=== PATIENT | female | born 1950 | race Caucasian/White ===

== ENCOUNTER → 2024-03-13 | Outpatient (REF) | payer MEDICARE ==
[~2024-03-13] MED LIST: FUROSEMIDE INJ 10 MG/ML 4 ML VIAL ONE
== END ==
LOC: NM 12:15
PROVIDERS: ATTEND Urology
DX: N13.30 Unspecified hydronephrosis (principal); N20.0 Calculus of kidney
CPT/HCPCS: 74176; 78708; A9562; J1940

== ENCOUNTER 2024-04-03 17:31 | Emergency (ER) | payer MEDICARE ==
[~2024-04-03] VITALS: Ht 157.5 cm; Wt 81.6 kg
[2024-04-03 17:50] VITALS: PULSE 63; RESP 17; TEMP 98.2; O2SAT 100
== END 2024-04-03 18:09 | disposition home or self-care (01) ==
LOC: ER 17:59
DX: Z43.6 Encounter for attention to other artificial openings of urinary tract (principal); I10 Essential (primary) hypertension; E78.5 Hyperlipidemia, unspecified; Z85.41 Personal history of malignant neoplasm of cervix uteri
CPT/HCPCS: 99282

== ENCOUNTER 2024-04-29 09:49 | Inpatient (IN) | payer MEDICARE ==
[~2024-04-29] VITALS: Ht 157.5 cm; Wt 80.7 kg
[~2024-04-29 09:49] MED LIST changes: +DIALYVITE TABL1 EACH PO; +ELIQUIS2.5 MG PO; -FUROSEMIDE INJ 10 MG/ML 4 ML VIAL ONE; +FUROSEMIDE40 MG PO; +LEVOTHYROXINE50 MCG PO; +MAGNESIUM OXID400 MG PO; +METOPROLOL TART25 MG PO; +PANTOPRAZOLE SO40 MG PO; +POTASSIUM20 MEQ/100 PO; +ZESTRIL2.5 MG PO
[2024-04-29 10:29] LABS: BASOPHILS % 0.5 % (0.0-1.0); EOSINOPHILS # (AUTO) 0.2 (0.0-0.4); EOSINOPHILS % 2.7 % (0.0-6.0); HEMOGLOBIN 10.4 g/dL (12.0-16.0); LYMPHOCYTES # (AUTO) 1.4 (1.0-3.2); LYMPHOCYTES % 16.4 % (18.0-39.1); MEAN CORPUSCULAR HGB CONC 32.5 g/dL (31-35); MEAN CORPUSCULAR VOLUME 95.2 fL (81-99); MONOCYTES # (AUTO) 0.6 (0.2-0.8); MONOCYTES % 7.2 % (4.4-11.3); NEUTROPHILS % 72.8 % (38.7-80.0); PLATELET COUNT 297 x10e3/uL (140-360); RED BLOOD COUNT 3.36 x10e6/uL (3.6-5.1); RED CELL DISTRIBUTION WIDTH 14.5 % (11.7-14.4); WHITE BLOOD COUNT 8.25 x10e3/uL (4.8-10.8)
[2024-04-29 10:44] LABS: PROTHROMBIN TIME 13.7 seconds (11.9-14.5)
[2024-04-29 10:46] LABS: PARTIAL THROMBOPLASTIN TIME 38.7 seconds (23.8-35.5)
[2024-04-29 10:49] LABS: ANION GAP 15.8 mmol/L (8-16); CALCIUM 10.1 mg/dL (8.4-10.2); CREATININE, SERUM 1.38 mg/dL (0.57-1.11); POTASSIUM 3.8 mmol/L (3.5-5.1)
[2024-04-29] MEDS ORDERED: HEPARIN SOD/SOD CHLORIDE 1,000 ML ONE (11:30)
[2024-04-29] MEDS ORDERED: FENTANYL CITRATE/PF 100MCG/2 ML INJ ONE ×2 (12:45→12:47)
[2024-04-29] MEDS ORDERED: MIDAZOLAM HCL 2 MG/2 ML VIAL ONE (12:47)
[2024-04-29] MEDS ORDERED: GLYCOPYRROLATE INJ 0.2 MG/ML VIAL ONE (12:53)
[2024-04-29] MEDS ORDERED: ONDANSETRON HCL INJ 2MG/ML 2ML 2 MG/ML VIAL ONE (12:53)
[2024-04-29] MEDS ORDERED: LIDOCAINE HCL 2% LOCAL INJ 5 ML SDV VIAL INJ ONE (12:53)
[2024-04-29] MEDS ORDERED: DEXAMETHASONE SOD PHOS INJ 4 MG/ML SDV ONE (12:53)
[2024-04-29] MEDS ORDERED: METOCLOPRAMIDE HCL 10 MG/2ML VIAL ONE (12:53)
[2024-04-29] MEDS ORDERED: SEVOFLURANE INHAL SOLN 250 ML PEN BTL ONE (12:53)
[2024-04-29] MEDS ORDERED: PROPOFOL IV EMULSION 10 MG/ML 20 ML VIAL ONE (12:53)
[2024-04-29] MEDS ORDERED: ESMOLOL HCL 100MG/10ML 10 MG/ML VIAL ONE (12:53)
[2024-04-29] MEDS ORDERED: ROCURONIUM BROMIDE 10 MG/ML 5ML VIAL IV ONE (12:53)
[2024-04-29] MEDS ORDERED: HYDROMORPHONE 1MG/1ML INJ ONE (13:23)
[2024-04-29] MEDS ORDERED: NALOXONE HCL INJ 0.4 MG/ML AMP IV PRN (16:30)
[2024-04-29] MEDS: SODIUM CHLORIDE 0.9% 250ML IRRIG IR SCH (16:30)
[2024-04-29 16:47] LABS: BASOPHILS # (AUTO) 0.1 (0.0-0.1); BASOPHILS % 0.5 % (0.0-1.0); EOSINOPHILS # (AUTO) 0.1 (0.0-0.4); EOSINOPHILS % 1.1 % (0.0-6.0); HEMATOCRIT 26.8 % (34.2-44.1); HEMOGLOBIN 8.8 g/dL (12.0-16.0); LYMPHOCYTES % 10.2 % (18.0-39.1); MEAN CORPUSCULAR HEMOGLOBIN 31.2 pg (28-32); MEAN CORPUSCULAR HGB CONC 32.8 g/dL (31-35); MONOCYTES # (AUTO) 0.4 (0.2-0.8); MONOCYTES % 3.6 % (4.4-11.3); NEUTROPHILS # (AUTO) 8.5 (2.1-6.9); PLATELET COUNT 242 x10e3/uL (140-360); RED BLOOD COUNT 2.82 x10e6/uL (3.6-5.1); RED CELL DISTRIBUTION WIDTH 14.3 % (11.7-14.4); WHITE BLOOD COUNT 10.06 x10e3/uL (4.8-10.8)
[2024-04-29] MEDS: HYDROMORPHONE 0.2MG/ML-SOD CHL 30ML PCA SYRINGE IV PRN (17:00)
[2024-04-29 17:08] LABS: ANION GAP 14.8 mmol/L (8-16); CALCIUM 8.4 mg/dL (8.4-10.2); CREATININE, SERUM 1.1 mg/dL (0.57-1.11); POTASSIUM 3.8 mmol/L (3.5-5.1)
[2024-04-29 18:00] VITALS: BP 106/57; PULSE 67; RESP 18; TEMP 96.9
[2024-04-29] MEDS ORDERED: LEVOTHYROXINE25 MCG PO (18:08)
[2024-04-29 19:22] VITALS: BP 106/57; PULSE 67; RESP 16; TEMP 96.9; O2SAT 97
[2024-04-29] MEDS ORDERED: ACETAMINOPHEN 1000 MG/100 ML IV PRN (19:30)
[2024-04-29] MEDS ORDERED: HYDRALAZINE HCL 20 MG/ML VIAL IV PRN (19:30)
[2024-04-29 19:50] VITALS: PULSE 84; RESP 18; O2SAT 99
[2024-04-29] MEDS: SODIUM CHLORIDE 0.9% 1000ML 1,000 ML IV SCH (19:52)
[2024-04-29 20:00] VITALS: BP 110/60; PULSE 72; RESP 18; TEMP 95.6; O2SAT 99
[2024-04-29 23:49] VITALS: BP 108/56; PULSE 75; RESP 18; TEMP 97.4; O2SAT 99
[2024-04-30] VITALS (8 sets, daily range): BP systolic 90–110; BP diastolic 40–52; PULSE 74–97; RESP 17–21; TEMP 97.9–99.3; O2SAT 98–100
[2024-04-30 05:09] LABS: BASOPHILS % 0.1 % (0.0-1.0); HEMATOCRIT 26.5 % (34.2-44.1); HEMOGLOBIN 8.5 g/dL (12.0-16.0); LYMPHOCYTES # (AUTO) 0.9 (1.0-3.2); LYMPHOCYTES % 4.4 % (18.0-39.1); MEAN CORPUSCULAR HEMOGLOBIN 31.6 pg (28-32); MEAN CORPUSCULAR HGB CONC 32.1 g/dL (31-35); MEAN CORPUSCULAR VOLUME 98.5 fL (81-99); MONOCYTES # (AUTO) 1.1 (0.2-0.8); MONOCYTES % 5.7 % (4.4-11.3); NEUTROPHILS # (AUTO) 17.6 (2.1-6.9); NEUTROPHILS % 89.3 % (38.7-80.0); PLATELET COUNT 232 x10e3/uL (140-360); RED BLOOD COUNT 2.69 x10e6/uL (3.6-5.1); RED CELL DISTRIBUTION WIDTH 14.6 % (11.7-14.4); WHITE BLOOD COUNT 19.71 x10e3/uL (4.8-10.8)
[2024-04-30 05:37] LABS: ANION GAP 14.5 mmol/L (8-16); CALCIUM 8.7 mg/dL (8.4-10.2); CREATININE, SERUM 1.19 mg/dL (0.57-1.11); POTASSIUM 4.5 mmol/L (3.5-5.1)
[2024-05-01] VITALS (8 sets, daily range): BP systolic 100–127; BP diastolic 58–71; PULSE 66–130; RESP 17–22; TEMP 98.1–99.3; O2SAT 97–100
[2024-05-01 05:25] LABS: BASOPHILS % 0.2 % (0.0-1.0); EOSINOPHILS # (AUTO) 0.1 (0.0-0.4); EOSINOPHILS % 0.4 % (0.0-6.0); HEMATOCRIT 24.9 % (34.2-44.1); HEMOGLOBIN 7.7 g/dL (12.0-16.0); LYMPHOCYTES # (AUTO) 1.2 (1.0-3.2); LYMPHOCYTES % 9.3 % (18.0-39.1); MEAN CORPUSCULAR HEMOGLOBIN 31.2 pg (28-32); MEAN CORPUSCULAR HGB CONC 30.9 g/dL (31-35); MEAN CORPUSCULAR VOLUME 100.8 fL (81-99); MONOCYTES # (AUTO) 1.1 (0.2-0.8); MONOCYTES % 8.4 % (4.4-11.3); NEUTROPHILS # (AUTO) 10.1 (2.1-6.9); NEUTROPHILS % 81.2 % (38.7-80.0); PLATELET COUNT 214 x10e3/uL (140-360); RED BLOOD COUNT 2.47 x10e6/uL (3.6-5.1); RED CELL DISTRIBUTION WIDTH 15.2 % (11.7-14.4); WHITE BLOOD COUNT 12.46 x10e3/uL (4.8-10.8)
[2024-05-01 05:56] LABS: ANION GAP 12.6 mmol/L (8-16); CALCIUM 7.5 mg/dL (8.4-10.2); CREATININE, SERUM 0.98 mg/dL (0.57-1.11); POTASSIUM 3.6 mmol/L (3.5-5.1)
[2024-05-01] MEDS ORDERED: DEXAMETHASONE SOD PHOS 10 MG/1 ML VIAL IV ONE (07:45)
[2024-05-01] MEDS ORDERED: SODIUM CHLORIDE 0.9% 250ML 250 ML IV ONE (07:45)
[2024-05-01] MEDS ORDERED: DIPHENHYDRAMINE HCL INJ 50 MG/ML VIAL IV ONE (07:45)
[2024-05-01] MEDS: HYDROMORPHONE 1MG/1ML INJ IV PRN (10:32)
[2024-05-01] MEDS: DIPHENHYDRAMINE HCL INJ 50 MG/ML VIAL IV ONE (12:50)
[2024-05-01] MEDS: DEXAMETHASONE SOD PHOS 10 MG/1 ML VIAL IV ONE (12:50)
[2024-05-01] MEDS: SODIUM CHLORIDE 0.9% 250ML 250 ML IV ONE (12:51)
[2024-05-01] MEDS ORDERED: ACETAMINOPHEN 1000 MG/100 ML IV PRN (15:00)
[2024-05-01] MEDS: FUROSEMIDE INJ 10 MG/ML 2 ML VIAL IV PRN (16:36)
[2024-05-01 16:48] LABS: HEMOGLOBIN 9.6 g/dL (12.0-16.0)
[2024-05-02] VITALS (7 sets, daily range): BP systolic 95–131; BP diastolic 52–66; PULSE 76–91; RESP 17–20; TEMP 97.8–98.6; O2SAT 98–100
[2024-05-02 08:02] LABS: BASOPHILS % 0.2 % (0.0-1.0); HEMATOCRIT 25.5 % (34.2-44.1); HEMOGLOBIN 8.3 g/dL (12.0-16.0); LYMPHOCYTES # (AUTO) 0.9 (1.0-3.2); LYMPHOCYTES % 7.2 % (18.0-39.1); MEAN CORPUSCULAR HEMOGLOBIN 31.6 pg (28-32); MEAN CORPUSCULAR HGB CONC 32.5 g/dL (31-35); MONOCYTES % 7.3 % (4.4-11.3); NEUTROPHILS % 84.8 % (38.7-80.0); PLATELET COUNT 215 x10e3/uL (140-360); RED BLOOD COUNT 2.63 x10e6/uL (3.6-5.1); RED CELL DISTRIBUTION WIDTH 15.2 % (11.7-14.4); WHITE BLOOD COUNT 12.97 x10e3/uL (4.8-10.8)
[2024-05-02 08:30] LABS: ANION GAP 12.8 mmol/L (8-16); CALCIUM 9.5 mg/dL (8.4-10.2); CREATININE, SERUM 1.21 mg/dL (0.57-1.11); POTASSIUM 3.8 mmol/L (3.5-5.1)
[2024-05-02] MEDS: TRAMADOL HCL 50 MG TAB PO PRN (08:41)
[2024-05-03] VITALS (7 sets, daily range): BP systolic 95–134; BP diastolic 49–71; PULSE 78–87; RESP 18; TEMP 98.2–98.9; O2SAT 96–99
[2024-05-03 05:57] LABS: BASOPHILS % 0.2 % (0.0-1.0); EOSINOPHILS # (AUTO) 0.1 (0.0-0.4); EOSINOPHILS % 1.2 % (0.0-6.0); HEMATOCRIT 26.1 % (34.2-44.1); HEMOGLOBIN 8.3 g/dL (12.0-16.0); LYMPHOCYTES # (AUTO) 1.2 (1.0-3.2); LYMPHOCYTES % 10.9 % (18.0-39.1); MEAN CORPUSCULAR HEMOGLOBIN 30.2 pg (28-32); MEAN CORPUSCULAR HGB CONC 31.8 g/dL (31-35); MEAN CORPUSCULAR VOLUME 94.9 fL (81-99); MONOCYTES # (AUTO) 0.9 (0.2-0.8); NEUTROPHILS # (AUTO) 8.5 (2.1-6.9); NEUTROPHILS % 79.2 % (38.7-80.0); PLATELET COUNT 239 x10e3/uL (140-360); RED BLOOD COUNT 2.75 x10e6/uL (3.6-5.1); RED CELL DISTRIBUTION WIDTH 14.5 % (11.7-14.4); WHITE BLOOD COUNT 10.68 x10e3/uL (4.8-10.8)
[2024-05-03 06:21] LABS: ANION GAP 13.6 mmol/L (8-16); CALCIUM 8.9 mg/dL (8.4-10.2); CREATININE, SERUM 1.13 mg/dL (0.57-1.11); POTASSIUM 3.6 mmol/L (3.5-5.1)
[2024-05-03] MEDS: ONDANSETRON HCL INJ 2MG/ML 2ML 2 MG/ML VIAL IV PRN (09:40)
[2024-05-04 01:19] VITALS: BP 72/40; PULSE 78; RESP 18; TEMP 98.7; O2SAT 98
[2024-05-04 04:41] VITALS: BP 95/57; PULSE 84; RESP 18; TEMP 98.4; O2SAT 99
[2024-05-04 08:31] VITALS: BP 114/59; PULSE 83; RESP 18; TEMP 97.6; O2SAT 100
[2024-05-04 11:50] VITALS: BP 99/51; PULSE 78; RESP 16; TEMP 98.6; O2SAT 100
[2024-05-04 15:46] VITALS: BP 99/51; PULSE 83; RESP 20; TEMP 97.4; O2SAT 97
[2024-05-04 21:00] VITALS: BP 112/52; PULSE 74; RESP 18; TEMP 98.6; O2SAT 97
[2024-05-05] VITALS (8 sets, daily range): BP systolic 96–120; BP diastolic 49–61; PULSE 68–76; RESP 16–18; TEMP 97.6–98.4; O2SAT 95–100
[2024-05-05 06:58] LABS: ANION GAP 10.8 mmol/L (8-16); CALCIUM 8.8 mg/dL (8.4-10.2); CREATININE, SERUM 1.23 mg/dL (0.57-1.11); POTASSIUM 3.8 mmol/L (3.5-5.1)
[2024-05-05 08:08] LABS: BASOPHILS % 0.1 % (0.0-1.0); EOSINOPHILS # (AUTO) 0.4 (0.0-0.4); EOSINOPHILS % 4.7 % (0.0-6.0); HEMATOCRIT 25.4 % (34.2-44.1); HEMOGLOBIN 7.8 g/dL (12.0-16.0); LYMPHOCYTES # (AUTO) 1.3 (1.0-3.2); LYMPHOCYTES % 16.7 % (18.0-39.1); MEAN CORPUSCULAR HEMOGLOBIN 30.2 pg (28-32); MEAN CORPUSCULAR HGB CONC 30.7 g/dL (31-35); MEAN CORPUSCULAR VOLUME 98.4 fL (81-99); MONOCYTES # (AUTO) 0.9 (0.2-0.8); MONOCYTES % 11.2 % (4.4-11.3); NEUTROPHILS # (AUTO) 5.1 (2.1-6.9); NEUTROPHILS % 66.6 % (38.7-80.0); PLATELET COUNT 251 x10e3/uL (140-360); RED BLOOD COUNT 2.58 x10e6/uL (3.6-5.1); RED CELL DISTRIBUTION WIDTH 14.8 % (11.7-14.4); WHITE BLOOD COUNT 7.68 x10e3/uL (4.8-10.8)
[2024-05-05 11:08] LABS: BASOPHILS % (MANUAL) 1 % (0-1.5); EOSINOPHILS % (MANUAL) 7 % (0-7); LYMPHOCYTES % (MANUAL) 18 % (19-48); MONOCYTES % (MANUAL) 5 % (3.4-9.0); NEUTROPHILS % (MANUAL) 69 % (40-74); PLATELET ESTIMATE ADEQUATE; PLATELET MORPHOLOGY COMMENT NORMAL
[2024-05-05 11:09] LABS: HYPOCHROMASIA SLIGHT; MICROCYTOSIS MODERATE
[2024-05-06] VITALS (7 sets, daily range): BP systolic 98–123; BP diastolic 55–62; PULSE 60–72; RESP 17–18; TEMP 97.8–98.6; O2SAT 98–100
[2024-05-07] VITALS (8 sets, daily range): BP systolic 95–129; BP diastolic 50–69; PULSE 65–76; RESP 18–20; TEMP 97.9–98.3; O2SAT 95–100
[2024-05-07 07:04] LABS: BASOPHILS % 0.1 % (0.0-1.0); EOSINOPHILS # (AUTO) 0.3 (0.0-0.4); HEMATOCRIT 27.7 % (34.2-44.1); HEMOGLOBIN 8.5 g/dL (12.0-16.0); LYMPHOCYTES # (AUTO) 1.2 (1.0-3.2); LYMPHOCYTES % 14.2 % (18.0-39.1); MEAN CORPUSCULAR HEMOGLOBIN 31.4 pg (28-32); MEAN CORPUSCULAR HGB CONC 30.7 g/dL (31-35); MEAN CORPUSCULAR VOLUME 102.2 fL (81-99); MONOCYTES # (AUTO) 0.9 (0.2-0.8); MONOCYTES % 10.4 % (4.4-11.3); NEUTROPHILS # (AUTO) 5.7 (2.1-6.9); NEUTROPHILS % 70.6 % (38.7-80.0); PLATELET COUNT 263 x10e3/uL (140-360); RED BLOOD COUNT 2.71 x10e6/uL (3.6-5.1); RED CELL DISTRIBUTION WIDTH 14.6 % (11.7-14.4); WHITE BLOOD COUNT 8.15 x10e3/uL (4.8-10.8)
[2024-05-07 07:34] LABS: ANION GAP 13.9 mmol/L (8-16); CALCIUM 8.8 mg/dL (8.4-10.2); CREATININE, SERUM 1.11 mg/dL (0.57-1.11); POTASSIUM 3.9 mmol/L (3.5-5.1)
[2024-05-07] MEDS: CHOLESTYRAMINE 4 GM PACKET PO PRN (17:05)
[2024-05-08] VITALS (9 sets, daily range): BP systolic 109–126; BP diastolic 52–61; PULSE 70–79; RESP 17–20; TEMP 98.2–99.1; O2SAT 95–100
[2024-05-08] MEDS: HYDROMORPHONE 1MG/1ML INJ IV PRN (13:06)
[2024-05-09] VITALS: BP 104/57; PULSE 73; RESP 20; TEMP 98.4; O2SAT 100
[2024-05-09 04:10] VITALS: BP 111/54; PULSE 76; RESP 20; TEMP 97.8; O2SAT 99
[2024-05-09] MEDS: SODIUM CHLORIDE 0.9% 1000ML 1,000 ML ONE (08:23)
[2024-05-09 09:35] VITALS: BP 111/54; PULSE 76; RESP 20; TEMP 97.8; O2SAT 99
[2024-05-09] MEDS: PREGABALIN 25 MG CAP PO SCH (10:01)
[2024-05-09] MEDS: LACTOBACILLUS ACIDOPHILUS CAPSULE PO SCH (10:01)
[2024-05-09] MEDS: CELECOXIB 100 MG CAP PO SCH (10:01)
[2024-05-09] MEDS: PANTOPRAZOLE SOD 40 MG TABEC PO ONE (10:01)
[2024-05-09] MEDS: KETOROLAC TROMETHAMINE 30 MG/ML VIAL IV PRN (11:12)
[2024-05-09] MEDS: ENOXAPARIN 30 MG/0.3 ML SYR SC SCH (17:16)
[2024-05-09 20:00] VITALS: BP 109/57; PULSE 64; PULSE 69; RESP 18; RESP 20; TEMP 97; O2SAT 97
[2024-05-10 05:46] LABS: BASOPHILS % 0.1 % (0.0-1.0); EOSINOPHILS # (AUTO) 0.3 (0.0-0.4); EOSINOPHILS % 3.6 % (0.0-6.0); HEMATOCRIT 25.1 % (34.2-44.1); LYMPHOCYTES # (AUTO) 1.5 (1.0-3.2); LYMPHOCYTES % 17.6 % (18.0-39.1); MEAN CORPUSCULAR HEMOGLOBIN 30.5 pg (28-32); MEAN CORPUSCULAR HGB CONC 31.9 g/dL (31-35); MEAN CORPUSCULAR VOLUME 95.8 fL (81-99); MONOCYTES # (AUTO) 0.9 (0.2-0.8); MONOCYTES % 10.4 % (4.4-11.3); NEUTROPHILS # (AUTO) 5.6 (2.1-6.9); NEUTROPHILS % 67.6 % (38.7-80.0); PLATELET COUNT 297 x10e3/uL (140-360); RED BLOOD COUNT 2.62 x10e6/uL (3.6-5.1); RED CELL DISTRIBUTION WIDTH 14.4 % (11.7-14.4); WHITE BLOOD COUNT 8.29 x10e3/uL (4.8-10.8)
[2024-05-10 06:04] LABS: ANION GAP 11.8 mmol/L (8-16); CALCIUM 8.6 mg/dL (8.4-10.2); CREATININE, SERUM 1.58 mg/dL (0.57-1.11); POTASSIUM 3.8 mmol/L (3.5-5.1)
[2024-05-10 08:17] VITALS: BP 119/64; PULSE 64; RESP 17; TEMP 97.5; O2SAT 100
[2024-05-10 08:20] VITALS: BP 119/64; PULSE 64; RESP 17; TEMP 97.5; O2SAT 100
[2024-05-10] MEDS: PANTOPRAZOLE SOD 40 MG TABEC PO SCH (08:56)
[2024-05-10 09:44] LABS: BAND NEUTROPHILS % (MANUAL) 1 %; EOSINOPHILS % (MANUAL) 5 % (0-7); LYMPHOCYTES % (MANUAL) 14 % (19-48); MONOCYTES % (MANUAL) 7 % (3.4-9.0); NEUTROPHILS % (MANUAL) 73 % (40-74)
[2024-05-10] MEDS: HYDROCODONE/APAP 10MG-325MG TAB PO PRN (10:41)
[2024-05-10 11:41] VITALS: BP 132/69; PULSE 74; RESP 18; TEMP 98.1; O2SAT 100
[2024-05-10 17:46] VITALS: BP 107/57; PULSE 62; RESP 18; TEMP 97.4; O2SAT 98
[2024-05-10 20:00] VITALS: BP 110/61; PULSE 66; RESP 17; TEMP 98.2; O2SAT 96
[2024-05-11] VITALS (8 sets, daily range): BP systolic 93–108; BP diastolic 47–56; PULSE 58–88; RESP 17–20; TEMP 97.7–98.6; O2SAT 97–100
[2024-05-12] VITALS: BP 99/51; PULSE 62; RESP 20; TEMP 98; O2SAT 99
[2024-05-12 08:37] VITALS: BP 115/56; PULSE 68; RESP 18; TEMP 98.1; O2SAT 99
[2024-05-12 08:43] VITALS: BP 115/56; PULSE 68; RESP 18; TEMP 98.1; O2SAT 99
[2024-05-12 13:01] VITALS: BP 128/61; PULSE 58; RESP 18; TEMP 97; O2SAT 98
[2024-05-12 16:06] LABS: ANION GAP 13.5 mmol/L (8-16); CALCIUM 9.2 mg/dL (8.4-10.2); CREATININE, SERUM 1.21 mg/dL (0.57-1.11); POTASSIUM 4.5 mmol/L (3.5-5.1)
[2024-05-12 17:15] VITALS: BP 123/65; PULSE 83; RESP 18; TEMP 97.7; O2SAT 100
[2024-05-12 20:00] VITALS: BP 111/46; PULSE 62; RESP 18; TEMP 97.4; O2SAT 100
[2024-05-13] VITALS (8 sets, daily range): BP systolic 95–124; BP diastolic 44–75; PULSE 62–111; RESP 17–22; TEMP 97.6–98.2; O2SAT 93–99
[2024-05-13] MEDS ORDERED: PROPOFOL IV EMULSION 10 MG/ML 20 ML VIAL ONE (13:07)
[2024-05-13] MEDS ORDERED: GLYCOPYRROLATE INJ 0.2 MG/ML VIAL ONE (13:07)
[2024-05-13] MEDS ORDERED: ACETAMINOPHEN 1000 MG/100 ML IV ONE (13:07)
[2024-05-13] MEDS ORDERED: ONDANSETRON HCL INJ 2MG/ML 2ML 2 MG/ML VIAL ONE (13:07)
[2024-05-13] MEDS ORDERED: LIDOCAINE HCL 2% LOCAL INJ 5 ML SDV VIAL INJ ONE (13:07)
[2024-05-13] MEDS ORDERED: DEXAMETHASONE SOD PHOS INJ 4 MG/ML SDV ONE (13:07)
[2024-05-13] MEDS ORDERED: KETAMINE HCL INJ 50 MG/ML 10 ML VIAL ONE ×2 (13:07→19:50)
[2024-05-13] MEDS ORDERED: SEVOFLURANE INHAL SOLN 250 ML PEN BTL ONE (13:08)
[2024-05-13] MEDS ORDERED: IOPAMIDOL 610MG/1ML 300 MG/ML VIAL IV ONE (13:51)
[2024-05-13 17:24] LABS: BASOPHILS % 0.4 % (0.0-1.0); EOSINOPHILS # (AUTO) 0.2 (0.0-0.4); EOSINOPHILS % 1.9 % (0.0-6.0); HEMOGLOBIN 8.8 g/dL (12.0-16.0); LYMPHOCYTES # (AUTO) 0.8 (1.0-3.2); LYMPHOCYTES % 8.7 % (18.0-39.1); MEAN CORPUSCULAR HEMOGLOBIN 30.8 pg (28-32); MEAN CORPUSCULAR HGB CONC 32.6 g/dL (31-35); MEAN CORPUSCULAR VOLUME 94.4 fL (81-99); MONOCYTES # (AUTO) 0.3 (0.2-0.8); MONOCYTES % 3.6 % (4.4-11.3); NEUTROPHILS # (AUTO) 7.9 (2.1-6.9); NEUTROPHILS % 84.5 % (38.7-80.0); PLATELET COUNT 359 x10e3/uL (140-360); RED BLOOD COUNT 2.86 x10e6/uL (3.6-5.1); RED CELL DISTRIBUTION WIDTH 14.6 % (11.7-14.4); WHITE BLOOD COUNT 9.32 x10e3/uL (4.8-10.8)
[2024-05-13 17:41] LABS: ANION GAP 16.8 mmol/L (8-16); CALCIUM 9.3 mg/dL (8.4-10.2); CREATININE, SERUM 1.04 mg/dL (0.57-1.11); POTASSIUM 4.8 mmol/L (3.5-5.1)
[2024-05-13] MEDS ORDERED: FENTANYL CITRATE/PF 100MCG/2 ML INJ ONE (19:50)
[2024-05-13] MEDS ORDERED: MIDAZOLAM HCL 2 MG/2 ML VIAL ONE (19:50)
[2024-05-14 01:10] VITALS: BP_SYST 90; BP_SYST 98; BP_DIAS 56; PULSE 58; RESP 18; TEMP 97.7; O2SAT 99
[2024-05-14 05:26] VITALS: BP 88/69; PULSE 63; RESP 18; TEMP 97.9; O2SAT 95
[2024-05-14 06:48] LABS: BASOPHILS % 0.1 % (0.0-1.0); EOSINOPHILS # (AUTO) 0.1 (0.0-0.4); EOSINOPHILS % 0.9 % (0.0-6.0); HEMATOCRIT 26.8 % (34.2-44.1); HEMOGLOBIN 8.3 g/dL (12.0-16.0); LYMPHOCYTES # (AUTO) 1.8 (1.0-3.2); MEAN CORPUSCULAR VOLUME 96.8 fL (81-99); MONOCYTES # (AUTO) 0.7 (0.2-0.8); MONOCYTES % 7.8 % (4.4-11.3); NEUTROPHILS # (AUTO) 6.2 (2.1-6.9); NEUTROPHILS % 70.1 % (38.7-80.0); PLATELET COUNT 348 x10e3/uL (140-360); RED BLOOD COUNT 2.77 x10e6/uL (3.6-5.1); RED CELL DISTRIBUTION WIDTH 14.5 % (11.7-14.4); WHITE BLOOD COUNT 8.83 x10e3/uL (4.8-10.8)
[2024-05-14 07:06] LABS: ANION GAP 13.7 mmol/L (8-16); CALCIUM 8.9 mg/dL (8.4-10.2); CREATININE, SERUM 1.15 mg/dL (0.57-1.11); POTASSIUM 4.7 mmol/L (3.5-5.1)
[2024-05-14 09:00] VITALS: BP 94/46; PULSE 70; RESP 18; TEMP 97.9; O2SAT 100
[2024-05-14 09:42] VITALS: BP 97/50; PULSE 70; RESP 18; TEMP 97.9; O2SAT 100
[2024-05-14] MEDS ORDERED: ONDANSETRON HCL INJ 2MG/ML 2ML 2 MG/ML VIAL IV PRN (09:45)
[2024-05-14 10:08] LABS: LYMPHOCYTES % (MANUAL) 20 % (19-48); MONOCYTES % (MANUAL) 2 % (3.4-9.0); NEUTROPHILS % (MANUAL) 77 % (40-74); REACTIVE LYMPHOCYTES 1
[2024-05-14 10:09] LABS: PLATELET ESTIMATE ADEQUATE; PLATELET MORPHOLOGY COMMENT NORMAL; RBC MORPHOLOGY COMMENT NORMAL
[2024-05-14] MEDS: ACETAMINOPHEN 325 MG TAB PO PRN (12:17)
[2024-05-14] MEDS: MIDODRINE HCL 5 MG TABLET PO SCH (12:17)
[2024-05-14 12:27] VITALS: BP 96/46; PULSE 65; RESP 18; TEMP 98; O2SAT 98
[2024-05-14 16:08] VITALS: BP 102/51; PULSE 63; RESP 19; TEMP 98; O2SAT 99
== END 2024-05-14 18:20 | DRG 660 ==
LOC: OR 09:49 → PACU V 16:25 → MED/SURG 17:46 → MED/SURG3 05-01 17:17
PROVIDERS: ADMIT Internal Medicine; ATTEND Internal Medicine
PROC: 0TP90DZ Removal of Intraluminal Device from Ureter, Open Approach (ICD-10-PCS; 2024-04-29)
PROC: 0UJH7ZZ Inspection of Vagina and Cul-de-sac, Via Natural or Artificial Opening (ICD-10-PCS; 2024-04-29)
PROC: 0T7D7ZZ Dilation of Urethra, Via Natural or Artificial Opening (ICD-10-PCS; 2024-04-29)
PROC: 0T9B70Z Drainage of Bladder with Drainage Device, Via Natural or Artificial Opening (ICD-10-PCS; 2024-04-29)
PROC: 0TT10ZZ Resection of Left Kidney, Open Approach (ICD-10-PCS; principal; 2024-04-29 13:16)
PROC: 30233N1 Transfusion of Nonautologous Red Blood Cells into Peripheral Vein, Percutaneous Approach (ICD-10-PCS; 2024-05-01)
PROC: 02HV33Z Insertion of Infusion Device into Superior Vena Cava, Percutaneous Approach (ICD-10-PCS; 2024-05-09)
PROC: 02HV33Z Insertion of Infusion Device into Superior Vena Cava, Percutaneous Approach (ICD-10-PCS; 2024-05-10)
PROC: 0UJH7ZZ Inspection of Vagina and Cul-de-sac, Via Natural or Artificial Opening (ICD-10-PCS; 2024-05-13)
DX: N26.1 Atrophy of kidney (terminal) (principal); D62 Acute posthemorrhagic anemia; Z16.12 Extended spectrum beta lactamase (ESBL) resistance; T83.192A Other mechanical complication of indwelling ureteral stent, initial encounter; N39.0 Urinary tract infection, site not specified; R18.8 Other ascites; K21.9 Gastro-esophageal reflux disease without esophagitis; I12.9 Hypertensive chronic kidney disease with stage 1 through stage 4 chronic kidney disease, or unspecified chronic kidney disease; N18.9 Chronic kidney disease, unspecified; E03.9 Hypothyroidism, unspecified; E78.5 Hyperlipidemia, unspecified; I48.91 Unspecified atrial fibrillation; R31.9 Hematuria, unspecified; Y83.6 Removal of other organ (partial) (total) as the cause of abnormal reaction of the patient, or of later complication, without mention of misadventure at the time of the procedure; M17.0 Bilateral primary osteoarthritis of knee; R53.81 Other malaise; N31.9 Neuromuscular dysfunction of bladder, unspecified; N35.92 Unspecified urethral stricture, female; N95.2 Postmenopausal atrophic vaginitis; B96.20 Unspecified Escherichia coli [E. coli] as the cause of diseases classified elsewhere; E66.01 Morbid (severe) obesity due to excess calories; Z68.32 Body mass index [BMI] 32.0-32.9, adult; Z79.01 Long term (current) use of anticoagulants; Z79.890 Hormone replacement therapy; Z96.0 Presence of urogenital implants; Z90.49 Acquired absence of other specified parts of digestive tract; Z88.5 Allergy status to narcotic agent
CPT/HCPCS: 36415; 36568; 71045; 71046; 74018; 74176; 74420; 80048; 83735; 85014; 85018; 85025; 85610; 85730; 86850; 86900; 86920; 87070; 87071; 87075; 87086; 87186; 87205; 88307; 93005; 94799; 99252; C1758; C1769; J0690; J1100; J1171; J1200; J1650; J1885; J1940; J2003; J2185; J2250; J2405; J2470; J2543; J2765; J7030; J7050; P9016

== ENCOUNTER → 2024-09-20 | Day surgery (SDC) | payer MEDICARE ==
[~2024-09-20] MED LIST changes: +ACETAMINOPHEN 1000 MG/100 ML 100 ML IV ONE; +ACIDOPHILUS1 EAC1 PO; +BIOTIN5 MG PO; +DEXAMETHASONE SOD PHOS INJ 4 MG/ML SDV ONE; +EPHEDRINE SULFATE INJ 50 MG/ML VIAL ONE; +FAMOTIDINE 20 MG/2 ML VIAL IV ONE; +FENTANYL CITRATE/PF 100MCG/2 ML INJ ONE; +FLOMAX0.4 MG PO; +LEVOTHYROXINE25 MCG PO; +LIDOCAINE HCL 2% LOCAL INJ 5 ML SDV VIAL INJ ONE; +LYRICA25 MG PO; +ONDANSETRON HCL 4 MG ORAL DISINTEGRATING TAB ONE; +ONDANSETRON HCL INJ 2MG/ML 2ML 2 MG/ML VIAL ONE; +PROPOFOL IV EMULSION 10 MG/ML 20 ML VIAL ONE; +ROCURONIUM BROMIDE 1 ML IV ONE; +SEVOFLURANE INHAL SOLN 250 ML PEN BTL ONE; +SUCCINYLCHOLINE CHLORIDE 20 MG/ML 10ML VIAL ONE; +TURMERIC500 M1 PO; +VITAMIN B12 PO
[2024-09-20] MEDS: PIPERACILLIN/TAZOBACTAM 3.375 GM VIAL ONE (06:13)
[2024-09-20] MEDS: LACTATED RINGER'S 1,000 ML ONE (06:13)
[2024-09-20] MEDS: CLINDAMYCIN 600MG / 50ML 50 ML IV ONE (06:14)
[2024-09-20] MEDS: GENTAMICIN 80MG/NS 100 ML 200 ML IV ONE (06:14)
[2024-09-20 06:32] LABS: BASOPHILS % 0.6 % (0.0-1.0); EOSINOPHILS # (AUTO) 0.3 (0.0-0.4); EOSINOPHILS % 4.3 % (0.0-6.0); HEMATOCRIT 32.3 % (34.2-44.1); HEMOGLOBIN 10.8 g/dL (12.0-16.0); LYMPHOCYTES # (AUTO) 1.6 (1.0-3.2); LYMPHOCYTES % 23.9 % (18.0-39.1); MEAN CORPUSCULAR HEMOGLOBIN 29.1 pg (28-32); MEAN CORPUSCULAR HGB CONC 33.4 g/dL (31-35); MEAN CORPUSCULAR VOLUME 87.1 fL (81-99); MONOCYTES # (AUTO) 0.6 (0.2-0.8); MONOCYTES % 9.7 % (4.4-11.3); PLATELET COUNT 235 x10e3/uL (140-360); RED BLOOD COUNT 3.71 x10e6/uL (3.6-5.1); WHITE BLOOD COUNT 6.49 x10e3/uL (4.8-10.8)
[2024-09-20 06:46] LABS: CALCIUM 9.1 mg/dL (8.4-10.2); CREATININE, SERUM 1.31 mg/dL (0.57-1.11)
[2024-09-20 09:30] VITALS: TEMP 97
[2024-09-20 10:43] VITALS: BP 146/90; PULSE 59; RESP 16; O2SAT 98
[2024-09-20] MEDS: ONDANSETRON HCL 4 MG ORAL DISINTEGRATING TAB PO ONE (11:09)
== END | disposition home or self-care (01) ==
LOC: OR 05:44
PROVIDERS: ATTEND Urology
DX: N39.41 Urge incontinence (principal); I10 Essential (primary) hypertension; I48.91 Unspecified atrial fibrillation; E78.5 Hyperlipidemia, unspecified; E03.9 Hypothyroidism, unspecified; E66.9 Obesity, unspecified; Z88.6 Allergy status to analgesic agent; Z88.2 Allergy status to sulfonamides; Z79.02 Long term (current) use of antithrombotics/antiplatelets; Z79.899 Other long term (current) drug therapy
CPT/HCPCS: 36415; 64581; 64590; 76000; 80048; 85025; 93005; 95972; C1767; C1778; J0131; J0330; J1100; J1580; J2003; J2405; J2543; J2704; J3010; J7121; Q0162

== ENCOUNTER → 2024-10-17 | Outpatient (REF) | payer MEDICARE ==
[~2024-10-17] MED LIST changes: -ACETAMINOPHEN 1000 MG/100 ML 100 ML IV ONE; -DEXAMETHASONE SOD PHOS INJ 4 MG/ML SDV ONE; -EPHEDRINE SULFATE INJ 50 MG/ML VIAL ONE; -FAMOTIDINE 20 MG/2 ML VIAL IV ONE; -FENTANYL CITRATE/PF 100MCG/2 ML INJ ONE; +FUROSEMIDE INJ 10 MG/ML 4 ML VIAL ONE; -LIDOCAINE HCL 2% LOCAL INJ 5 ML SDV VIAL INJ ONE; -ONDANSETRON HCL 4 MG ORAL DISINTEGRATING TAB ONE; -ONDANSETRON HCL INJ 2MG/ML 2ML 2 MG/ML VIAL ONE; -PROPOFOL IV EMULSION 10 MG/ML 20 ML VIAL ONE; -ROCURONIUM BROMIDE 1 ML IV ONE; -SEVOFLURANE INHAL SOLN 250 ML PEN BTL ONE; -SUCCINYLCHOLINE CHLORIDE 20 MG/ML 10ML VIAL ONE
== END ==
LOC: NM 12:45
PROVIDERS: ATTEND Urology
DX: Z87.442 Personal history of urinary calculi (principal)
CPT/HCPCS: 78708; A9562; J1940